=== PATIENT | female | born 1965 | race Caucasian/White ===

== ENCOUNTER 2018-04-08 17:49 | Observation (INO) ==
[~2018-04-08 17:49] MED LIST: LIDOCAINE W/ SODIUM BICARB 0.5 ML SYR ONE; LIDOCAINE W/ SODIUM BICARB 0.5 ML SYR SUBD PRN; Lactated Ringers 1,000 ML PRIMARY IV ONE; Lactated Ringers 1,000 ML PRIMARY IV SCH; Nasal Sanitizer POPSWAB ampule 3 AMP (Nozin) PREOP DOSE ENOS SCH; ceFAZolin Inj 2gm (Premix) 2 GM/50 ML BAG IV ONE
[2018-04-08] MEDS ORDERED: BUPIVACAINE 0.25% W/ EPI - 10 ML VIAL ONE ×2 (20:10→22:45)
[2018-04-08] MEDS ORDERED: LIDOCAINE 2%/ EPI 1:200,000 - 20 ML VIAL ONE (20:16)
[2018-04-08] MEDS ORDERED: fentaNYL Inj 100 MCG/2 ML VIAL ONE (20:16)
[2018-04-08] MEDS ORDERED: MIDAZOLAM HCL 2 MG/2 ML VIAL ONE (20:16)
[2018-04-08] MEDS ORDERED: BUPIVACAINE 0.5% W/ EPI - 10 ML VIAL ONE (20:16)
[2018-04-08] MEDS ORDERED: LIDOCAINE W/ SODIUM BICARB 0.5 ML SYR ONE (20:27)
--- NOTE | 2018-04-08 20:39 | CRNA.PROCE ---
Nerve Block Documentation - - Safety Measures: Time Out Taken, Site Verified - - Type of Nerve Block Used: Right Popliteal Fossa Block Position for Nerve Block: Prone Moniters Used During Block: EKG, SPO2, NIBP Sedation Used - Enter Amount in Comment Field [ANES.SEDAT]: Midazolam (mg): Yes (2), Fentanyl (mcg): Yes (50) Skin Prep Used: ChloroPrep Technique: Nerve Stimulator Nerve Block Needle Used: 80 mm ProBlk II Stimulation Hz: 1.0 Stimulation Staring mA: 1.2 Stimulation Ending mA: 0.5 Local Anesthetic - Enter Amt in Comment Field [ANES.LOCNB]: 0.5 % Bupivicaine with Epinephrine 1:200,000 (mL): Yes (20), 2 % Xylocaine with Epinephrine 1:200,000 (mL): Yes (20) - - PreOp Block : Time In: 20:20 PreOp Block : Time Out: 20:30 Anesthesia Time - Other Weight: 88.451 kg Height: 5 ft 5 in Body Mass Index (BMI): 32.4
[2018-04-08] MEDS ORDERED: Propofol 1,000 MG/100 ML VIAL IV ONE (20:41)
[2018-04-08] MEDS ORDERED: Lactated Ringers 1,000 ML PRIMARY IV ONE (22:40)
[2018-04-08] MEDS ORDERED: Sodium Chloride 0.9% vial 10 ML ONE (22:47)
[2018-04-08] MEDS ORDERED: BUPivacaine Liposome/PF (Exparel) Inj 20ml vial INFIL ONE (22:48)
--- NOTE | 2018-04-08 23:22 | ORTHO.OP ---
- - -: See Dictated Operative Report
--- NOTE | 2018-04-08 23:35 | CRNA.PROGR ---
Anesthesia Time - Procedure/Recovery Time Start Date: 04/08/18 End Date: 04/08/18 Anesthesia : Time In: 21:49 Anesthesia : Time Out: 23:17 Anesthesia : Total Time: 88 - Block Time PreOp Block : Time In: 20:20 PreOp Block : Time Out: 20:30 - Total Anesthesia Time Total Anesthesia Time (minutes): 88 - Other Weight: 88.451 kg Height: 5 ft 5 in Body Mass Index (BMI): 32.4 Physical Status: P2 Anesthesia Type: Popliteal Fossa Block
--- NOTE | 2018-04-08 23:35 | CRNA.PROGR ---
Post Anesthesia Phase II - Post Anesthesia Phase II Patient Stable and Discharged To: Phase II Care Assumed By Surgeon: Crispin Billy MD Temperature: 99.7 F Pulse Rate: 69 Respiratory Rate: 12 Blood Pressure: 135/83 Pulse Ox: 96 Total Elaine Score at Discharge: 10 Post Anesthesia Discharge Criteria Met: Yes
[2018-04-08] MEDS ORDERED: ONDANSETRON 4 MG/2 ML VIAL IVP PRN (23:48)
[2018-04-09] MEDS: oxyCODONE/APAP 7.5/325 Tab 1 TAB TAB PO PRN ×3 (00:15→09:01)
[2018-04-09 05:08] VITALS: O2SAT 96
[2018-04-09 07:52] VITALS: BP 121/78; RESP 20; TEMP 97.4
--- NOTE | 2018-04-17 14:19 | ORTHO.DC ---
Discharge Summary Admit Date: 04/08/18 Discharge Date: 04/09/18 Admitting Diagnosis: Right ankle bimalleolar fracture Discharge Diagnosis: right ankle bimalleolar fracture Primary Surgery and Date: 04/08/18 Hospital Course: The patient stayed overnight for PO pain management and observation. Her hospital stay and surgery was routine and uneventful. She was discharged home in stable condition. She is NWB with crutches in an L & U splint. Follow-up with orthopedics as scheduled in 2 weeks. Discharge Medications: Discharge Medications Pindolol 5 mg PO BID 04/03/18 [History] Potassium Chloride [Klor-Con] 10 meq PO DAILY 04/03/18 [History] Sotalol HCl [Sotalol] 120 mg PO BID 04/03/18 [History] Oxycodone HCl/Acetaminophen [Percocet 2.5-325 mg Tablet] 1 tab PO PRN PRN 04/07/18 [History] Follow-Up: Crispin Billy [STAFF PHYSICIAN] - 04/21/18 9:00 am ([facility]) NONE,NONE [Primary Care Provider] - As Needed Discharge Instructions Provided to Patient / Family: ORIF of a Leg Fracture (DC), Splint Care (DC) Exam - Vitals Vital Signs: Vital Signs Temperature 97.4 F Temperature Source Temporal Artery Scan Pulse Rate [Pulse Oximeter] 74 Pulse Rate 77 Respiratory Rate 20 Blood Pressure [Right Arm] 121/78 Blood Pressure 122/58 Pulse Ox 96 Oxygen Flow Rate RA Oxygen Delivery Method Room Air Height 5 ft 5 in Weight 88.451 kg
== END 2018-04-09 11:20 | disposition home or self-care (01) ==
LOC: OR 17:49 → MED/SURG 17:49 → OPS 17:59
PROVIDERS: ADMIT Orthopaedic Surgery; ATTEND Orthopaedic Surgery